=== PATIENT | female | born 1995 | race Caucasian/White ===

== ENCOUNTER 2024-08-06 14:04 | Outpatient (CLI) ==
[~2024-08-06] VITALS: Ht 175.3 cm; Wt 110.2 kg
[2024-08-06 14:22] VITALS: BP 122/59
[2024-08-06] MEDS ORDERED: PRENTAB9 PO (14:30)
[2024-08-06] MEDS ORDERED: PRIL20TA2 PO (14:30)
[2024-08-06] MEDS ORDERED: UNIS25TA3 PO (14:30)
[2024-08-06] MEDS ORDERED: NOXI1TAB PO (14:30)
[2024-08-06 14:33] VITALS: BP 122/59; TEMP 98
[2024-08-06] MEDS ORDERED: HOME MED LIST COMPLETE! XX SCH (14:35)
[2024-08-06 17:46] VITALS: BP 122/72
[2024-08-06 17:57] VITALS: BP 115/69
[2024-08-06 17:58] VITALS: O2SAT 96
[2024-08-06 17:59] VITALS: O2SAT 97
[2024-08-06 21:40] LABS: GC DNA AMPLIFICATION NEGATIVE (NEGATIVE)
== END 2024-08-06 18:10 | disposition home or self-care (01) ==
LOC: M LDO 14:04
PROVIDERS: ATTEND Obstetrics & Gynecology
DX: O26.893 Other specified pregnancy related conditions, third trimester (principal); R25.2 Cramp and spasm; Z3A.31 31 weeks gestation of pregnancy
CPT/HCPCS: 59025; 76815; 87810; 87850; G0463

== ENCOUNTER → 2024-09-05 | Outpatient (REF) | payer OTHER ==
[~2024-09-05] MED LIST: NOXI1TAB PO; PRENTAB9 PO; PRIL20TA2 PO; UNIS25TA3 PO
== END ==
LOC: M PLALAB 12:58
PROVIDERS: ATTEND Nurse Practitioner Family
DX: Z36.85 Encounter for antenatal screening for Streptococcus B (principal); Z3A.36 36 weeks gestation of pregnancy

== ENCOUNTER 2024-09-13 20:21 | Outpatient (CLI) | payer OTHER ==
[~2024-09-13] VITALS: Ht 175.3 cm; Wt 113.7 kg
[2024-09-13 20:38] VITALS: BP 131/64
[2024-09-13] MEDS ORDERED: ACET-907 PO (20:41)
[2024-09-13] MEDS ORDERED: HOME MED LIST COMPLETE! XX SCH (20:55)
== END 2024-09-13 22:26 | disposition home or self-care (01) ==
LOC: M LDO 20:21
PROVIDERS: ATTEND Obstetrics & Gynecology
DX: O47.1 False labor at or after 37 completed weeks of gestation (principal); O99.843 Bariatric surgery status complicating pregnancy, third trimester; Z3A.37 37 weeks gestation of pregnancy
CPT/HCPCS: 59025; G0463